=== PATIENT | female | born 1970 | race Caucasian/White ===

== ENCOUNTER → 2018-07-15 | Outpatient (CLI) | payer OTHER ==
--- NOTE | 2018-07-15 11:31 | REPMRS ---
Patient History The patient states she had a clinical breast exam in May 2018. Family history of breast cancer in maternal grandmother, leukemia in mother. Digital Mammo Screening Bilat: July 15, 2018 - Exam #: [id number] Bilateral CC and MLO view(s) were taken. Technologist: Breana Rivera, Technologist No prior studies available for comparison. FINDINGS: The breast tissue is extremely dense which could obscure a lesion on mammography. There is no evidence of cancer on this mammogram. Assessment: BI-RADS/ACR category 2 mammogram. Benign Findings. Recommendation Routine screening mammogram of both breasts in 1 year (for women over age 40). This mammogram was interpreted with the aid of an FDA-approved computer-aided dectection system. Electronically Signed By: Leighton Garcia MD 07/15/18 [id number]
== END ==
LOC: M RAD 10:17
PROVIDERS: ATTEND Family Medicine
DX: Z12.31 Encounter for screening mammogram for malignant neoplasm of breast (principal); Z80.3 Family history of malignant neoplasm of breast; Z80.6 Family history of leukemia

== ENCOUNTER 2020-09-25 13:06 | Emergency (ER) | payer OTHER ==
[~2020-09-25] VITALS: Ht 157.5 cm; Wt 67.5 kg
[2020-09-25] MEDS ORDERED: LORazepam 0.5 MG TAB PO STA (16:45)
[2020-09-25] MEDS ORDERED: NS 1,000 ML IV ONE (16:45)
[2020-09-25] MEDS ORDERED: ACETAMINOPHEN 500 MG TAB PO ONE (16:50)
[2020-09-25] MEDS ORDERED: METOCLOPRAMIDE INJ 10MG/2ML VIAL (J2765 PER 1) IV ONE (16:50)
[2020-09-25] MEDS ORDERED: diphenhydrAMINE 50MG/ML VIAL (J1200) IV ONE (16:50)
[2020-09-25 17:24] LABS: BASO % 0.2 % (0.0-1.0); EOS % 0.1 % (0.0-3.0); HEMATOCRIT 42.4 % (36.0-47.0); HEMOGLOBIN 13.7 g/dl (12.0-15.5); LYMPH # 1.1 10^3/uL (1.5-5.0); LYMPH % 9.3 % (24.0-44.0); MEAN CORPUSCULAR HEMOGLOBIN 30.3 pg (27.0-33.0); MEAN CORPUSCULAR HGB CONC 32.3 g/dl (32.0-36.5); MEAN CORPUSCULAR VOLUME 93.8 fl (80.0-96.0); MONO # 0.4 10^3/uL (0.0-0.8); MONO % 3.1 % (2.0-8.0); NEUTROPHILS # 10.4 10^3/uL (1.5-8.5); NEUTROPHILS % 86.7 % (36.0-66.0); PLATELET COUNT, AUTOMATED 328 10^3/uL (150-450); RED BLOOD COUNT 4.52 10^6/uL (4.00-5.40)
--- NOTE | 2020-09-25 17:38 | REPVR ---
PROCEDURE INFORMATION: Exam: CT Head Without Contrast Exam date and time: 09/25/2020 4:14 PM Age: 50 years old Clinical indication: Pain; Headache; Additional info: Headache arm numbness and tingling TECHNIQUE: Imaging protocol: Computed tomography of the head without contrast. Axial and coronal reformatted images were created and reviewed. Radiation optimization: All CT scans at this facility use at least one of these dose optimization techniques: automated exposure control; mA and/or kV adjustment per patient size (includes targeted exams where dose is matched to clinical indication); or iterative reconstruction. COMPARISON: No relevant prior studies available. FINDINGS: Brain: No CT evidence of acute intracranial hemorrhage or acute territorial infarction. No significant mass effect or midline shift. Basal cisterns patent. Cerebral ventricles: Normal in size and configuration. Bones/joints: No acute osseous abnormality. Paranasal sinuses: Unremarkable. No fluid levels. Mastoid air cells: Grossly unremarkable. Soft tissues: Grossly unremarkable. IMPRESSION: No CT evidence of acute intracranial pathology. Electronically signed by: Rahul Rosales On 09/25/2020 17:38:13 PM
[2020-09-25 17:47] LABS: ALBUMIN 4.2 GM/DL (3.2-5.2); ALT/SGPT 20 U/L (12-78); BILIRUBIN,DIRECT 0.1 MG/DL (0.0-0.2); BILIRUBIN,TOTAL 0.4 MG/DL (0.2-1.0); BLOOD UREA NITROGEN 7 MG/DL (7-18); CALCIUM LEVEL 9.1 MG/DL (8.5-10.1); CARBON DIOXIDE LEVEL 30 MEQ/L (21-32); CHLORIDE LEVEL 106 MEQ/L (98-107); CK-MB VALUE MASS 1.8 NG/ML (<3.6); CPK CREATINE PHOSPHOKINASE 116 U/L (26-192); CREATININE FOR GFR 0.63 MG/DL (0.55-1.30); GLOMERULAR FILTRATION RATE > 60.0 (>58); GLUCOSE, FASTING 100 MG/DL (70-100); LIPASE 67 U/L (73-393); MB/CK RELATIVE INDEX 1.55 (< OR =4); POTASSIUM SERUM 3.4 MEQ/L (3.5-5.1); SODIUM LEVEL 140 MEQ/L (136-145); TOTAL PROTEIN 8.2 GM/DL (6.4-8.2); TROPONIN I < 0.02 NG/ML (< 0.10)
[2020-09-25] MEDS ORDERED: POTASSIUM CHLORIDE 10 MEQ SR TABLET PO ONE (19:25)
[2020-09-25 19:38] VITALS: BP 157/96
--- NOTE | 2020-09-26 05:58 | ECGEPIP ---
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
== END 2020-09-25 19:51 | disposition home or self-care (01) ==
LOC: M ED 13:06
DX: R51.9 Headache, unspecified (principal); R11.2 Nausea with vomiting, unspecified; F43.0 Acute stress reaction; E86.0 Dehydration
CPT/HCPCS: 70450; 80048; 80076; 81001; 82550; 82553; 83690; 84484; 85025; 87798; 93005; 96361; 96374; 96375; 99284; J1200; J2765